=== PATIENT | female | born 1975 | race American Indian/Alaskan Native ===

== ENCOUNTER 2021-04-26 09:55 | Observation (INO) | payer OTHER ==
[2021-04-23 13:32] LABS: Basophils % (Auto) 0.7 % (0.0-1.8); Eosinophils # (Auto) 0.1 K/mm3 (0.0-0.4); Eosinophils % (Auto) 1.2 % (0.0-4.3); Hematocrit 37.6 % (30.3-42.9); Hemoglobin 12.9 gm/dl (10.1-14.3); Lymphocytes # (Auto) 2.1 K/mm3 (1.2-5.4); Lymphocytes % (Auto) 36.8 % (13.4-35.0); Mean Corpuscular HGB Conc 34 % (30-34); Mean Corpuscular Volume 92 fl (79-97); Monocytes # (Auto) 0.4 K/mm3 (0.0-0.8); Monocytes % (Auto) 7.3 % (0.0-7.3); Platelet Count 303 K/mm3 (140-440); Red Blood Count 4.08 M/mm3 (3.65-5.03); Red Cell Distribution Width 13.1 % (13.2-15.2)
[2021-04-23 13:34] LABS: BUN/Creatinine Ratio 14; Blood Urea Nitrogen 13 mg/dL (7-17); Calcium 9.1 mg/dL (8.4-10.2); Hemolysis Index 4
--- NOTE | 2021-04-23 13:35 | Anesthesia Consultation ---
Anesthesia Consult and Med Hx Date of service: 04/26/21 - Airway Anesthetic Teeth Evaluation: Crowns (Missing teeth) ROM Head & Neck: Adequate Mental/Hyoid Distance: Adequate Mallampati Class: Class II Intubation Access Assessment: Good - Pre-Operative Health Status ASA Pre-Surgery Classification: ASA2 Proposed Anesthetic Plan: General Nerve Block: TAP - Pulmonary Hx Smoking: No Hx Sleep Apnea: No - Cardiovascular System Hx Hypertension: No Hx Heart Attack/AMI: No Hx Valvular Heart Disease: No - Central Nervous System Hx Seizures: No Hx Psychiatric Problems: No - Endocrine Hx Liver Disease: No - Hematic Hx Anemia: No Hx Sickle Cell Disease: No - Other Systems Hx Alcohol Use: Yes (OCC. WINE) Hx Substance Use: No Hx Cancer: No Hx Obesity: No
--- NOTE | 2021-04-24 19:50 | History and Physical Report ---
History of Present Illness Date of examination: 04/23/21 History of present illness: Patient has been reassessed/reevaluated. H&P has been reviewed. No interval changes. This is a 45 years old female who presents with menstrual disorder. She complains of heavy bleeding, dysmenorrhea, clotting, history of fibroids, f atigue and cramping, but denies irregular menses, mid-cycle spotting, lack of menses, history of ovarian cysts, history of thyroid disease, history of PCOS, history of bleeding disorder and lightheadedness. Patient reports that for pain she uses OCP's. The patient also presents with uterine fibroids. She complains of pelvic pain, pelvic pressure and menorrhagia, but denies abdominal pain, abdominal pressure and intermenstrual bleeding. Treatment tried to date includes control pills and NSAIDs. Patient's work up has included a transvaginal ultrasound which revealed multiple myomas. Patient's symptoms when present disrupts her normal daily activities ] Vital Signs: Patient Profile: 45 Years Old Female Height: 65 inches (165.10 cm) Weight: 181 pounds BMI: 30.12 Temp: 97.5 degrees F BP sittin / 80 (right arm) Date of Last Pap Smear: 02/20/2021 Past History : 3 Term Births: 1 Premature Births: 0 Living Children: 1 Para: 1 Mult. Births: 0 Prev : 0 Aborta: 2 Elect. Ab: 0 Spont. Ab: 2 Ectopics: 0 Current Allergies: * SHELL FISH (Critical) * MILK (Critical) Past Medical History: h/o molar , 2002 Fibroids Past Surgical History: D&C: Family History Summary: Family History Breast Cancer- mat aunt. late 50s. No Family History of DVT/PE on OCP Family History of Diabetes pat aunts Family History of Hypertension par aunts Social History: Patient is single Smoking History: Patient has never smoked. Risk Factors: Smoked Tobacco Use: Never smoker Smokeless Tobacco Use: Never Passive Smoke Exposure: no Caffeine Use: 0 drinks per day Exercise: yes Times/wk: 4 Seatbelt Use: 100 % PAP Smear History: Date of Last PAP Smear: 02/20/2021 Alcohol Use: yes Type: occ Drug Use: no GEOMAGNETIST History Uterine Surgery (not C/S): positive Operations: D&C: Abnormal PAP: negative Uterine Anomaly: positive fibroids Infection History HIV Risk Eval: no Personal hx. of genital herpes: yes Partner hx. of genital herpes: yes Hx of STD: HSV Review of Systems General Complains of fatigue. Denies fever, chills, sweats, anorexia, weakness, malaise, weight loss and sleep disorder. Complains of menorrhagia and pelvic pain. Denies vaginal discharge, incontinence, dysuria, hematuria, urinary freq uency, amenorrhea, abnormal vaginal bleeding, genital sores, decreased libido, painful periods, painful sex, urinary urgency, hot flashes, vaginal dryness, vaginal itching and vaginal odor. CV Denies chest pains, palpitations, syncope, dyspnea on exertion, orthopnea, PND and peripheral edema. Resp Denies cough, dyspnea at rest, excessive sputum, hemoptysis, wheezing and pleurisy. GI Denies nausea, vomiting, diarrhea, constipation, change in bowel habits, abdominal pain, melena, hematochezia, jaundice, gas/bloating, indigestion/heartburn, dysphagia and odynophagia. Breast Denies left breast lump, right breast lump, nipple discharge, bloody discharge from nipple, breast pain, abnormal mammogram and breast enlargement. Psych Denies depression, anxiety, irritability and mood swings. Past History Past Medical History: other (SEE HPI FOR DETAILS) Past Surgical History: Other (SEE HPI FOR DETAILS) Social history: full code, other (SEE HPI FOR DETAILS) Family history: other (SEE HPI FOR DETAILS) Medications and Allergies Allergies Allergy/AdvReac Type Severity Reaction Status Date / Time Milk Containing Products AdvReac Unknown Unknown Verified 04/18/21 14:56 Home Medications Medication Instructions Recorded Confirmed Last Taken Type Acetaminophen [Tylenol Extra 1,000 mg PO BID 04/18/21 04/26/21 04/23/21 17:00 History Strength] Cetirizine HCl/Pseudoephedrine 1 each PO DAILY 04/18/21 04/26/21 04/12/21 09:00 History [Zyrtec-D Tablet] Flonase [place] 1 spray INNOSTRIL PRN 04/18/21 Unknown History Multivitamin [One-Daily 1 tab PO DAILY 04/18/21 04/26/21 04/24/21 09:00 History Multi-Vitamin] Norethindrone-E.estradiol-Iron [Lo 1 tab PO DAILY 04/18/21 04/26/21 04/25/21 09:00 History Loestrin Fe 1-10 Tablet] Phentermine HCl 1 dose PO DAILY 04/18/21 04/18/21 04/11/21 History Active Meds: Active Medications Acetaminophen (Acetaminophen 500 Mg Tab) 1,000 mg PO ONCE ONE Stop: 04/26/21 06:01 Celecoxib (Celecoxib 200 Mg Cap) 400 mg PO PREOP NR Stop: 04/27/21 23:59 Fentanyl (Fentanyl 100 Mcg/2 Ml Inj) 100 mcg IV ONCE ONE Stop: 04/26/21 06:01 Lactated Ringer's (Lactated Ringers) 1,000 mls @ 125 mls/hr IV DIRECT KAITLYNN Magnesium Oxide (Magnesium Oxide 400 Mg Tab) 400 mg PO ONCE ONE Stop: 04/26/21 06:01 Methocarbamol (Methocarbamol 750 Mg Tab) 1,500 mg PO ONCE ONE Stop: 04/26/21 06:01 Midazolam HCl (Midazolam 2 Mg/2 Ml Inj) 2 mg IV PREOP NR Stop: 04/26/21 23:59 Review of Systems Constitutional: other (SEE HPI FOR DETAILS) Exam - Physical Exam Narrative exam: HEENT: normocephalic, no lesions or deformities Skin no significant abnormal lesions or rashes Chest: respiratory effort normal, clear to auscultation CV: regular, normal S1-S2, no murmur, no rub, no gallop Abdomen: soft, non-tender, no masses, bowel sounds normal Neuro: no gross anomalities Extremities: no clubbing, cyanosis, or edema GEOMAGNETIST Exams Vulva/Vagina: normal appearance, no discharge, lesions. No evidence of cystocele or rectocele. Cervix: normal appearance, no lesions, no discharge Uterus: enlarged uterus 14 -16 weeks in size Adnexae: Unable to palpate due to uterine size Rectovaginal: exam defered - Constitutional Vitals: Temp Pulse Resp BP Pulse Ox 98.2 F 79 20 154/78 100 04/23/21 12:50 04/23/21 12:50 04/23/21 12:50 04/23/21 12:50 04/23/21 12:50 Results - Labs CBC & Chem 7: 04/23/21 06:00 04/23/21 06:00 Assessment and Plan - Patient Problems (1) Intramural leiomyoma of uterus Current Visit: No Status: Acute Plan to address problem: Diagnosis explained to patient . Questions answered. Discussed with patient various medical, surgical and radiological therapies common for treatment including expectant management, myomectomy hysterectomy and uterine artery embolization .Patient desires hysterectomy Discussed risks and benefits of laparotomy, laparoscopy, vaginal and robotic assisted approaches for hysterectomies Patient desires robotic assisted total hysterectomy. Consent reviewed and signed . The risks and alternatives for this surgery were reviewed with the patient. Discuss the risks of the surgery including infection, bleeding possibly heavy enough to require a blood transfusion, possible damage to bowel, bladder or ureter. Patient understand that this surgery with make her sterile.Patient understands if her ovaries are removed she will become menopausal. Also if unable to complete robitcally a laparotomy may be required. (2) Menometrorrhagia Current Visit: No Status: Acute Plan to address problem: Probably secondary to # 1 (3) Herpes, genital Current Visit: No Status: Chronic Qualifiers: Herpes simplex infection site: unspecified site of urogenital system Qualified Code(s): A60.00 - Herpesviral infection of urogenital system, unspecified (4) Personal history of COVID-19 Current Visit: No Status: Acute
[~2021-04-26 09:55] MED LIST: ACETAMINOPHEN 500 MG TAB PO ONE; CELECOXIB 200 MG CAP PO NR; LACTATED RINGERS 1,000 ML IV SCH; MAGNESIUM OXIDE 400 MG TAB PO ONE; MIDAZOLAM 2 MG/2 ML INJ IV NR; fentaNYL 100 MCG/2 ML INJ IV ONE
[2021-04-26] MEDS ORDERED: ACETAMINOPHEN 500 MG TAB ONE (10:04)
[2021-04-26] MEDS ORDERED: MAGNESIUM OXIDE 400 MG TAB PO ONE (10:05)
--- NOTE | 2021-04-26 10:28 | Anesthesia Day of Surgery ---
Anesthesia Day of Surgery - Day of Surgery Patient Examined: Yes Patient H&P Reviewed: Yes Patient is NPO: Yes
[2021-04-26] MEDS ORDERED: fentaNYL 100 MCG/2 ML INJ ONE (10:33)
[2021-04-26] MEDS ORDERED: BUPIVACAINE/PF (0.25%) 2.5 MG/ML 30 ML VIAL INFILTRATI ONE (10:46)
[2021-04-26] MEDS ORDERED: dexAMETHasone 4 MG/ML VIAL ONE (10:47)
[2021-04-26] MEDS ORDERED: NEOMY 40 MG/POLYMYXIN B 200,000 UNITS/ML (GU) AMPULE IR ONE ×2 (11:08→14:40)
[2021-04-26] MEDS ORDERED: HYDROmorphone 1 MG/1 ML INJ ONE ×2 (11:44→15:20)
[2021-04-26] MEDS ORDERED: LIDOCAINE MPF (2%) 20 MG/1 ML VIAL 5 ML ONE (11:44)
[2021-04-26] MEDS ORDERED: propofoL 200 MG/20 ML VIAL IV ONE (11:44)
[2021-04-26] MEDS ORDERED: ROCURONIUM 50 MG/5 ML INJ IV ONE ×2 (11:44→13:31)
[2021-04-26] MEDS ORDERED: ceFAZolin/Water 2 GM/20 ML 2 GM/20 ML SYRINGE IV NR (11:45)
[2021-04-26] MEDS ORDERED: ceFAZolin/Water 2 GM/20 ML 2 GM/20 ML SYRINGE IV ONE (11:50)
[2021-04-26] MEDS ORDERED: ONDANSETRON 4 MG/2 ML INJ ONE ×2 (14:04→15:35)
[2021-04-26] MEDS ORDERED: SUGAMMADEX SODIUM 200 MG/2 ML VIAL IV ONE (14:23)
[2021-04-26] MEDS ORDERED: HYDROcodone/ACETAMINOPHEN 5-325 MG TAB PO PRN (14:32)
[2021-04-26] MEDS ORDERED: KETOROLAC 30 MG/1 ML INJ ONE (14:32)
[2021-04-26] MEDS ORDERED: SODIUM CHLORIDE 0.9% IRRIG SOLN 2000 ML IR ONE (14:40)
[2021-04-26] MEDS ORDERED: SODIUM CHLORIDE 0.9% IRR 1,500 ML BOTTLE IR ONE (14:40)
--- NOTE | 2021-04-26 14:46 | Operative Report ---
Operative Report Operative Report: Date of procedure: April 26, 2021 Pre-operative diagnosis: Symptomatic large leiomyomata with dysmenorrhea menorrhalgia Post-operative diagnosis: Same Procedure name(s):Robotic Assisted Total Hysterectomy with bilateral salpingectomy Surgeon: Didier Barraza MD Simulation Specialist: Emmy Amador, certified endoscopy technician Anesthesia: General EBL: 50 cc Complications: None Findings: Patient with approximately 16-week size uterus with a large pedunculated fundal myoma approximately 8 to 9 cm in diameter several other leiomyomata uterus she had normal-appearing ovaries bilaterally normal appearing fallopian tubes Specimen(s): Uterus with cervix and bilateral fallopian tubes Procedure: Patient was brought to the operating room where general anesthesia was induced without difficulty. Patient was placed in the dorsal lithotomy position. Prepped and draped in the usual sterile manner for robotic procedure. Harding catheter was placed without difficulty. Speculum was placed in the vagina. A medium V-Care Uterine manipulator was placed without difficulty. Attention was now switched to the patient's abdomen. A vertical supra-umbilicus incision was made with a scalpel. A 10-12 trocar was placed in this incision under direct visualization. Intra-abdominal placement was verified with no evidence of internal organ damage. The patient was insufflated approximately 3-1/2 L of CO2 gas. She was placed in Trendelenburg position. The patient pelvic findings were noted as above. It was determined that the patient was a candidate for robotic procedure. On both sides the umbilical incision at about 8 cm, incisions were made for robotic trocars. Each robotic trocar was placed under direct visualization with no evidence of internal organ damage. One 5 mm trocar was placed 2 fingerbreadths above the right iliac crest. A 5 mm camera was placed in the right lower quadrant trocar, the 10-12 trocar was removed and a Omega Moses laparoscopic port closure device was placed through this incision under direct visualization with no evidence of internal organ damage. The camera was then replaced into this port. At this time the patient was placed in extreme Trendelenburg. The da Alisson robot was then docked on the patient's left side. The trocars connected to the robot appropriately robotic instruments were placed under direct visualization no evidence of internal organ damage.. At this time I took my place under the robotic operating goldsmith. Starting on the patient's right side the ureter was identified and found to be out of the operative field. Using the robotic vessel sealer the mesosalpinx under the fallopian tube were cauterized and cut starting from the distal end. Utero-ovarian complex was then cauterized and cut. This was followed by cauterizing and cutting the right fallopian tube and right round ligament. The broad ligament was then opened. The bladder flap was formed anteriorly. The posterior broad ligament was then excised. The uterine vessels were skeletonized. The ureter was clearly seen out of the operative field. The cinthia dder was pushed away from the anterior uterus. The right uterine vessels were then cauterized and cut. Attention was then switched to the patient's left side. The same procedure was repeated on the left side with perform the salpingectomy followed by isolating the uterine vessels cauterized and cutting and completing the bladder flap from the left side. At this time the uterus was appearing very cyanotic. After inspecting the bladder flap to insured no evidence of bladder injury, the colpotomy was then started. Incision started at 12:00 until the V-Care could be seen. This incision was extended from 12:00 to 9:00. Then from 12:00 to 3:00. Then from 3:00 to 6:00. This incision was extended from 6:00 to 9:00. At this time colpotomy was complete with no evidence of adjacent organ damage. The large size of the uterus prevent it being removed through the colpotomy, therefore I removed the large pedunculated fibroid and the 2 additional fibroids approximately 5 cm in diameter. Uterus still proved to be too large and bivalved the the the uterus starting the cervix through the fundus. The assistant toddler teacher was now able to remove the uterus from through the colpotomy site. The vaginal cuff was irrigated and cauterized and found to be hemostatic. The cuff was closed with roboticly using 0 V- Lock suture. This closure was hemostatic after irrigation and Bovie. All pedicles were inspected and found to be hemostatic. The ureters were identified bilaterally and found to be functioning normal. The patient had clear urine in the Harding catheter with no evidence of mixture with blood. Manish was placed on the cuff and pedicles for postoperative hemostasis . All instruments were then removed. The large trocar sites were closed in layers 2-0 Vicryl and 4-0 Monocryl. The smaller incisions were closed subcuticularly with 4-0 Monocryl. Dermabond was placed over the skin incisions. The patient tolerated procedure well. She was awakened in the operating room and accompanied to the recovery room in good condition.
[2021-04-26] MEDS: HYDROmorphone 1 MG/1 ML INJ IV PRN ×3 (15:20→15:40)
[2021-04-26] MEDS ORDERED: oxyCODONE /ACETAMINOPHEN 5-325MG TAB PO PRN (15:26)
--- NOTE | 2021-04-26 18:14 | Event Note ---
Date: 04/26/21 unable to void
--- NOTE | 2021-04-26 18:34 | Post Anesthesia Evaluation ---
- Post Anesthesia Evaluation Patient Participated: Yes Airway Patent: Yes Stable Respiratory Function: Yes Nausea/Vomiting: No Temp > 96.8F: Yes Pain Manageable: Yes Adequeate Hydration: Yes Anesthesia Complications: No Block Receding Appropriately: Yes Patient on Ventilator: No
[2021-04-26] MEDS ORDERED: ACETAMINOPHEN 325 MG TAB PO PRN (19:08)
[2021-04-26] MEDS ORDERED: ONDANSETRON 4 MG/2 ML INJ IV PRN (19:08)
[2021-04-26] MEDS ORDERED: D5W/LACTATED RINGERS 1,000 ML IV SCH (19:08)
[2021-04-26] MEDS: KETOROLAC 30 MG/1 ML INJ IV SCH (20:59)
[2021-04-26] MEDS: ceFAZolin/NS 1 GM/50 ML 1 GM/50 ML BAG IV SCH (21:05)
[2021-04-27] MEDS: HYDROcodone/ACETAMINOPHEN 5-325 MG TAB PO PRN ×2 (01:48→10:35)
[2021-04-27] MEDS: DOCUSATE SODIUM 100 MG CAP PO SCH ×2 (02:44→10:35)
[2021-04-27] MEDS: KETOROLAC 30 MG/1 ML INJ IV SCH (03:15)
[2021-04-27] MEDS: ceFAZolin/NS 1 GM/50 ML 1 GM/50 ML BAG IV SCH (03:19)
[2021-04-27 05:58] LABS: Hematocrit 35.1 % (30.3-42.9); Hemoglobin 11.4 gm/dl (10.1-14.3)
[2021-04-27] MEDS ORDERED: IBUPROFEN 800 MG TAB PO PRN (06:00)
--- NOTE | 2021-04-27 09:25 | Discharge Summary ---
Providers - Providers Date of Admission: 04/26/21 18:06 Date of discharge: 04/27/21 Attending physician: ILEANA HIGGINS Hospitalization Condition: Good Procedures: Robotic Assisted Total Hysterectomy with bilateral salpingectomy Hospital course: Normal Disposition: 01 HOME / SELF CARE / HOMELESS Final Discharge Diagnosis (Prints w/discharge instructions): Robotic Assisted Total Hysterectomy with bilateral salpingectomy - Discharge Diagnoses (1) History of robot-assisted laparoscopic hysterectomy Status: Acute Core Measure Documentation - Palliative Care Palliative Care/ Comfort Measures: Not Applicable - Core Measures Any of the following diagnoses?: none Exam - Constitutional Vitals: Temp Pulse Resp BP Pulse Ox 97.8 F 94 H 17 122/67 99 04/27/21 07:25 04/27/21 07:25 04/27/21 08:37 04/27/21 07:25 04/27/21 08:37 General appearance: Present: no acute distress - Respiratory Respiratory effort: normal Respiratory: bilateral: CTA - Cardiovascular Rhythm: regular - Extremities Extremities: no ischemia, No edema - Abdominal General gastrointestinal: Present: soft, non-tender, normal bowel sounds - Integumentary Integumentary: Present: clear, warm, dry (Incisions C/D/I) - Psychiatric Psychiatric: appropriate mood/affect, intact judgment & insight, memory intact, cooperative - Neurologic Neurologic: CNII-XII intact Plan Activity: other (No sex, no driving. Ambulate approximately 1 hour an appropriate day. Use your incentive spirometer every hour while awake. Void frequently.) Weight Bearing Status: Full Weight Bearing Diet: regular (Avoid spicy, high salt, high fat, and excessive carbohydrates. Drink approximately 75 ounces of water a day.) Wound: open to air, keep clean and dry Special Instructions: no heavy lifting (Greater than 25 pounds.) Follow up with: [facility] [Other] - 7 Days ILEANA HIGGINS MD [Staff Physician] - (As scheduled) Prescriptions: Ferrous Sulfate [Feosol 325 MG tab] 325 mg PO BID #60 tablet metroNIDAZOLE [Flagyl] 500 mg PO Q12HR #14 tab Ibuprofen [Motrin] 800 mg PO TID PRN #30 tablet PRN Reason: Pain oxyCODONE /ACETAMINOPHEN [Percocet 5/325 mg] 1 - 2 tab PO Q6HR PRN #20 tablet PRN Reason: Pain
[2021-04-27 11:57] VITALS: BP 123/60
== END 2021-04-27 11:45 | disposition home or self-care (01) ==
LOC: OR 09:55 → OB 18:06
PROVIDERS: ADMIT Obstetrics & Gynecology; ATTEND Obstetrics & Gynecology
DX: N92.0 Excessive and frequent menstruation with regular cycle (principal); Z20.822 Contact with and (suspected) exposure to COVID-19; A60.00 Herpesviral infection of urogenital system, unspecified; D25.1 Intramural leiomyoma of uterus; N92.1 Excessive and frequent menstruation with irregular cycle; Z79.899 Other long term (current) drug therapy; Z98.890 Other specified postprocedural states
CPT/HCPCS: 36415; 58573; 64450; 80048; 84703; 85014; 85018; 85025; 86850; 86900; 86901; 88307; 96365; 96366; 96375; G0378; J0690; J1100; J1170; J1885; J2250; J2405; J2704; J3010; J3490; J7120; J7121; S2900; U0003; J7060